=== PATIENT | female | born 1990 | race American Indian/Alaskan Native ===

== ENCOUNTER 2017-12-16 22:48 | Emergency (ER) | payer MEDICARE, OTHER ==
[2017-12-16 22:52] VITALS: RESP 16
[2017-12-16] MEDS ORDERED: DiphenhydrAMINE 50 mg/ml Inj IVP STA (23:20)
[2017-12-16] MEDS ORDERED: Sodium Chloride 0.9% 1,000 ML IV ONE (23:22)
--- NOTE | 2017-12-16 23:32 | ED PDOC ---
HPI: Headache Time Seen by Provider: 12/16/17 23:15 Chief Complaint (Nursing): GI Problem Chief Complaint (Provider): Headache History Per: Patient, EMS History/Exam Limitations: no limitations Onset/Duration Of Symptoms: Mins (15 minutes prior to arrival) Current Symptoms Are (Timing): Still Present Additional Complaint(s): 27 year old female from the [facility] presents to the emergency department via EMS complaining of a headache associated with nausea and sensitivity to light onset fifteen minutes prior to arrival. Patient denies fever, neck stiffness, recent upper respiratory infection, and history of migraines. She claims she gets headaches occasionally but this is not the worst one that she has ever had. PMD: none provided Past Medical History Reviewed: Historical Data, Nursing Documentation, Vital Signs Vital Signs: Last Vital Signs Temp 98.9 F 12/16/17 22:50 Pulse 111 H 12/16/17 22:50 Resp 16 12/16/17 22:50 BP 107/70 12/16/17 22:50 Pulse Ox 99 12/16/17 22:50 - Medical History PMH: Hypercholesterolemia - Surgical History Surgical History: Appendectomy - Family History Family History: States: Unknown Family Hx - Living Arrangements Living Arrangements: Other ([facility]) - Social History Current smoker - smoking cessation education provided: No Alcohol: None Drugs: Denies - Home Medications Home Medications: Ambulatory Orders Medication Instructions Recorded Acetaminophen/Butalbital/Caf 1 tab PO TID PRN #12 tab 12/16/17 [Fioricet] - Allergies Allergies/Adverse Reactions: Allergies Allergy/AdvReac Type Severity Reaction Status Date / Time fluphenazine [From Prolixin] Allergy RASH Verified 07/22/17 02:25 Penicillins Allergy RASH Verified 07/22/17 02:25 risperidone [From Risperdal] Allergy RASH Verified 07/22/17 02:25 Review of Systems ROS Statement: Except As Marked, All Systems Reviewed And Found Negative Constitutional: Negative for: Fever Gastrointestinal: Positive for: Nausea Musculoskeletal: Negative for: Neck Pain (or stiffness) Neurological: Positive for: Headache (with sensitivity to light) Physical Exam - Reviewed Nursing Documentation Reviewed: Yes Vital Signs Reviewed: Yes - Physical Exam Appears: Positive for: Well, Non-toxic, No Acute Distress (pleasantly smiling) Head Exam: Positive for: ATRAUMATIC (no tenderness to palpation), NORMAL INSPECTION, NORMOCEPHALIC Skin: Positive for: Normal Color Eye Exam: Positive for: Normal appearance ENT: Positive for: Normal ENT Inspection Neck: Positive for: Normal, Supple (no meningismus) Respiratory: Positive for: Normal Breath Sounds. Negative for: Accessory Muscle Use, Rales, Rhonchi, Wheezing, Respiratory Distress Gastrointestinal/Abdominal: Positive for: Normal Exam, Soft. Negative for: Tenderness Neurologic/Psych: Positive for: Alert (awake), [employer] II-XII (intact). Negative for: Motor/Sensory Deficits, Other (brudzinski's and kernig's signs) - ECG O2 Sat by Pulse Oximetry: 99 (RA) Pulse Ox Interpretation: Normal Medical Decision Making Medical Decision Making: Time: 23:19 Initial Impression: muscle tension headache verse migraine Initial Plan: --Benadryl 50mg IVP --Compazine 5mg IVP --Sodium chloride 0.9% 1000ml IV --Toradol 30mg IVP --reassessment 00:00 Patient states headache is better after just Benadryl and Toradol. Still awaiting Compazine. Will discharge on Fioricet. Diagnosed as muscle tension headache verse migraine. Patients symptoms are improved. Scribe Attestation: Documented by Harini Moore acting as a scribe for Zeny Rea MD. Scribe Attestation: All medical record entries made by the Scribe were at my direction and personally dictated by me. I have reviewed the chart and agree that the record accurately reflects my personal performance of the history, physical exam, medical decision making, and the department course for this patient. I have also personally directed, reviewed, and agree with the discharge instructions and disposition. Disposition - Clinical Impression Clinical Impression: Headache - Disposition Referrals: [facility] [Outside] Disposition Time: 00:00 Condition: GOOD Prescriptions: Acetaminophen/Butalbital/Caf [Fioricet] 1 tab PO TID PRN #12 tab PRN Reason: pain Instructions: Tension Headache, Migraine Headache (DC) Forms: [employer] (Al[place]ian)
[2017-12-16] MEDS ORDERED: DiphenhydrAMINE 50 mg/ml Inj ONE (23:49)
[2017-12-17 01:59] VITALS: BP 122/65; PULSE 78; TEMP 98.1; O2SAT 98
== END 2017-12-17 00:45 | disposition home or self-care (01) ==
LOC: H.ER 22:48
DX: R51 Headache (principal); E78.00 Pure hypercholesterolemia, unspecified; Z88.0 Allergy status to penicillin
CPT/HCPCS: 96361; 96374; 96375; 99283; J1200; J1885; J7030